=== PATIENT | female | born 1990 | race Caucasian/White ===

== ENCOUNTER 2016-09-19 09:12 | Inpatient (IN) | payer BC ==
[~2016-09-19] VITALS: Ht 154.9 cm; Wt 56.7 kg
[~2016-09-19 09:12] MED LIST: COLACE100 MG PO; IBUPROFEN400 MG PO; LITHIUM PO
[2016-09-19 10:46] LABS: BASOPHIL % 0.4 % (0-2); CALCIUM 8.7 mg/dL (8.5-10.1); CARBON DIOXIDE 28.6 mmol/L (21-32); CHLORIDE SERUM 105 mmol/L (98-107); CREATININE SERUM 0.8 mg/dL (0.6-1.0); GFR1 > 60 mL/min; GLUCOSE SERUM 98 mg/dL (74-106); PLATELET COUNT 246 x10^3mcL (130-400); POTASSIUM SERUM 3.6 mmol/L (3.5-5.1); SODIUM SERUM 140 mmol/L (136-145)
[2016-09-19 10:50] LABS: ALBUMIN 3.6 g/dL (3.4-5.0); ALKALINE PHOSPHATASE 69 U/L (46-116); ALT/SGPT 16 U/L (14-59); AMYLASE 67 U/L (25-115); AST/SGOT 13 U/L (15-37); BILIRUBIN TOTAL 0.4 mg/dL (0.20-1.00); LIPASE 109 IU/L (73-393); TOTAL PROTEIN, SERUM 7.1 g/dL (6.4-8.2)
[2016-09-19 11:20] LABS: FREE T4 0.97 ng/dL (0.76-1.46); FREE THYROXINE INDEX 2.7 ug/dL (1.4-4.5); T4(THYROXINE) 8.1 ug/dL (4.7-13.3)
[2016-09-19 11:21] LABS: T3 TOTAL 1.05 ng/mL
[2016-09-19 11:44] LABS: MAGNESIUM 1.9 mg/dL (1.8-2.4)
[2016-09-19 12:24] VITALS: BP 101/66
[2016-09-19 13:50] VITALS: BP 101/66
[2016-09-19 17:47] VITALS: BP 106/61
[2016-09-19 20:06] LABS: UA SPECIFIC GRAVITY >=1.030 (1.005-1.035); microscopic required? YES; urine erythrocyte NEGATIVE (NEGATIVE)
[2016-09-19 22:20] VITALS: BP 119/76
[2016-09-20 05:21] VITALS: BP 101/67
[2016-09-20 06:08] LABS: PLATELET COUNT 202 x10^3mcL (130-400); RED CELL DISTRIBUTION WIDTH 13.5 % (11.5-14.5)
[2016-09-20 06:18] LABS: CALCIUM 8.4 mg/dL (8.5-10.1); CARBON DIOXIDE 24.9 mmol/L (21-32); CHLORIDE SERUM 104 mmol/L (98-107); CREATININE SERUM 0.7 mg/dL (0.6-1.0); GFR1 > 60 mL/min; GLUCOSE SERUM 114 mg/dL (74-106); MAGNESIUM 1.5 mg/dL (1.8-2.4); PHOSPHOROUS 4.4 mg/dL (2.5-4.9); POTASSIUM SERUM 4.3 mmol/L (3.5-5.1); SODIUM SERUM 137 mmol/L (136-145)
[2016-09-20 06:43] LABS: BASOPHIL % 0 % (0-2)
[2016-09-20 10:24] VITALS: BP 75/52
[2016-09-20 14:25] VITALS: BP 99/57
[2016-09-20 17:54] VITALS: BP 98/44
[2016-09-20 21:42] VITALS: BP 110/69
[2016-09-21 05:30] VITALS: BP 96/49
[2016-09-21 07:08] LABS: CALCIUM 7.7 mg/dL (8.5-10.1); CHLORIDE SERUM 106 mmol/L (98-107); CREATININE SERUM 0.6 mg/dL (0.6-1.0); GFR1 > 60 mL/min; GLUCOSE SERUM 100 mg/dL (74-106); MAGNESIUM 1.9 mg/dL (1.8-2.4); PHOSPHOROUS 2.3 mg/dL (2.5-4.9); POTASSIUM SERUM 3.3 mmol/L (3.5-5.1); SODIUM SERUM 139 mmol/L (136-145)
[2016-09-21 07:32] LABS: BASOPHIL % 0.4 % (0-2); PLATELET COUNT 210 x10^3mcL (130-400); RED CELL DISTRIBUTION WIDTH 14.1 % (11.5-14.5)
[2016-09-21 10:21] VITALS: BP 106/64
[2016-09-21] MEDS ORDERED: SIMETHICONE80 MG CH (13:55)
[2016-09-21] MEDS ORDERED: PRI20 PO (13:56)
[2016-09-21] MEDS ORDERED: ACETAMINOPHEN-H1 TA1 PO (14:22)
[2016-09-21] MEDS ORDERED: COL100 PO (14:23)
[2016-09-21 14:32] VITALS: BP 106/64
== END 2016-09-21 16:00 | disposition home or self-care (01) | DRG 743 ==
LOC: ED 09:12 → MU 10:20 → DU 10:20 → MU 09-20 09:46
PROVIDERS: Emergency Medicine; Family Medicine; Obstetrics & Gynecology; ADMIT Family Medicine
PROC: 0UB00ZZ Excision of Right Ovary, Open Approach (ICD-10-PCS; principal; 2016-09-19 20:00)
DX: N83.201 Unspecified ovarian cyst, right side (principal); R19.03 Right lower quadrant abdominal swelling, mass and lump; Z68.23 Body mass index [BMI] 23.0-23.9, adult; Z80.0 Family history of malignant neoplasm of digestive organs; E83.42 Hypomagnesemia; E87.6 Hypokalemia; E83.39 Other disorders of phosphorus metabolism; D64.9 Anemia, unspecified
CPT/HCPCS: 83880; 84439; 94150; J0690; J1170; J2060; J2270; J2405; J3010; J3475; J3490; J7030; Q0092

== ENCOUNTER 2017-02-11 15:50 | Inpatient (IN) | payer BC ==
[~2017-02-11] VITALS: Ht 157.5 cm; Wt 65.0 kg
[~2017-02-11 15:50] MED LIST changes: +ACETAMINOPHEN-H1 TA1 PO; +COL100 PO; +PRI20 PO; +SIMETHICONE80 MG CH
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
--- NOTE | 2017-02-11 16:54 | NUR ---
3 ATTEMPTS AT STRAIGHT CATH, UNSUCCESSFUL, UNABLE TO VISUALIZE PT URETHRA
--- NOTE | 2017-02-11 17:09 | NUR ---
PTS FATHER AT BEDSIDE.
--- NOTE | 2017-02-11 17:24 | NUR ---
DR FLORES AT BEDSIDE FOR MSE
[2017-02-11 17:35] LABS: UA SPECIFIC GRAVITY 1.025 (1.005-1.035); microscopic required? YES; urine erythrocyte NEGATIVE (NEGATIVE)
[2017-02-11 17:44] LABS: AMPHETAMINE QUAL UR NONE DETECTED (NEG <=1000)
[2017-02-11 18:08] LABS: BASOPHIL % 0.4 % (0-2); PLATELET COUNT 204 x10^3mcL (130-400)
[2017-02-11 18:11] LABS: CALCIUM 7.5 mg/dL (8.5-10.1); CARBON DIOXIDE 27.8 mmol/L (21-32); CHLORIDE SERUM 108 mmol/L (98-107); CREATININE SERUM 0.6 mg/dL (0.6-1.0); GFR1 > 60 mL/min; GLUCOSE SERUM 97 mg/dL (74-106); SODIUM SERUM 141 mmol/L (136-145)
[2017-02-11 18:12] LABS: RED CELL DISTRIBUTION WIDTH 14.9 % (11.5-14.5)
[2017-02-11 18:24] LABS: ALKALINE PHOSPHATASE 78 U/L (46-116); ALT/SGPT 18 U/L (14-59); AST/SGOT 14 U/L (15-37); BILIRUBIN TOTAL 0.2 mg/dL (0.20-1.00); FREE T4 0.85 ng/dL (0.76-1.46); TOTAL PROTEIN, SERUM 6.3 g/dL (6.4-8.2)
[2017-02-11 18:32] LABS: ALBUMIN 3.1 g/dL (3.4-5.0)
--- NOTE | 2017-02-11 18:50 | NUR ---
PT TAKEN TO CT VIA RNELSY.
--- NOTE | 2017-02-11 19:10 | NUR ---
TOOK REPORT FROM MORIAH PINEDA, WILL ASSUME CARE OF PATIENT.
--- NOTE | 2017-02-11 19:11 | NUR ---
PT IS SLEEPING. VITAL SIGNS STABLE. RESPIRATIONS EVEN AND UNLABORED. NO ACUTE DISTRESS NOTED.
--- NOTE | 2017-02-11 20:11 | NUR ---
PT APPEARS TO BE RESTING WITH HER EYES CLOSED. VITAL SIGNS STABLE. RESPIRATIONS EVEN AND UNLABORED. NO ACUTE DISTRESS NOTED.
--- NOTE | 2017-02-11 20:51 | NUR ---
ASSISTED WITH LP. WALKED SPECIMEN TO LAB. PT RESPIRATIONS EVEN AND UNLABORED. VITAL SIGNS STABLE. NO ACUTE DISTRESS NOTED
--- NOTE | 2017-02-11 21:43 | NUR ---
PT SLEEPING. PT IS HYPOTENSIVE 89/51 ALL OTHER VITAL STABLE. RESPIRATIONS EVEN AND UNLABORED. NO ACUTE DISTRESS NOTED
--- NOTE | 2017-02-11 21:44 | NUR ---
RADIOLOGY AT BEDSIDE FOR X-RAY
--- NOTE | 2017-02-11 22:02 | NUR ---
GAVE REPORT TO ROSEMARIE ON MED/TELE.
[2017-02-11 22:03] LABS: TOTAL PROTEIN CSF 23.4 mg/dL (15-45)
[2017-02-11 22:09] LABS: PHOSPHOROUS 3.1 mg/dL (2.5-4.9)
[2017-02-11 22:10] LABS: CHOLESTEROL/HDL RATIO 2.1
[2017-02-11 22:17] LABS: T3 TOTAL 0.92 ng/mL
[2017-02-11 22:18] LABS: APPEARANCE CSF CLEAR; COLOR CSF COLORLESS; RBC CSF 0 /cumm (0); VOLUME CSF 7.5 mL; WBC CSF 0 /cumm (0-5)
[2017-02-11 22:19] LABS: APPEARANCE CSF CLEAR; RBC CSF 0 /cumm (0); VOLUME CSF 7.5 mL; WBC CSF 0 /cumm (0-5)
[2017-02-11 22:20] LABS: FREE T4 0.83 ng/dL (0.76-1.46); FREE THYROXINE INDEX 2.3 ug/dL (1.4-4.5); T4(THYROXINE) 6.9 ug/dL (4.7-13.3)
[2017-02-11 22:28] VITALS: BP 104/70
--- NOTE | 2017-02-11 22:36 | NUR ---
RECEIVED PATIENT FROM ED VIA [facility], PATIENT ALERT AND ORIENTED, TELE # 7 ST, IV ACCESS TO LAC WNL, NO C/O PAIN AT THIS TIME, ORIENTED PATIENT TO ROOM AND SURROUNDINGS, BED IN LOW POSITION, BED RAILS UP X 2, CALL LIGHT WITHIN REACH, WILL ENDORSE CARE TO PRIMARY NURSE ROSEMARIE PINEDA
--- NOTE | 2017-02-11 22:43 | NUR ---
REC'D REPORT, WILL CONTINUE CARE.
--- NOTE | 2017-02-12 01:12 | NUR ---
ROUNDS MADE, PT IS SLEEPING WITH EYES CLOSED. NO DISTRESS NOTED. WILL CONT TO MONITOR.
[2017-02-12 05:31] VITALS: BP 96/50
--- NOTE | 2017-02-12 06:11 | NUR ---
PT SLEPT THROUGHOUT THE SHIFT. DENIES PAIN. NO ACUTE RESP DISTRESS NOTED. ALL NEEDS MET AND ATTENDED TO. NO SIGNIFICANT CHANGES. IV ACCESS INTACT AND PATENT INFUSING WELL. WILL ENDORSE ALL CARE TO ONCOMING NURSE.
[2017-02-12 06:33] LABS: BASOPHIL % 0.4 % (0-2); PLATELET COUNT 189 x10^3mcL (130-400)
[2017-02-12 06:40] LABS: RED CELL DISTRIBUTION WIDTH 14.9 % (11.5-14.5)
[2017-02-12 06:44] LABS: CALCIUM 7.9 mg/dL (8.5-10.1); CARBON DIOXIDE 25.4 mmol/L (21-32); CHLORIDE SERUM 110 mmol/L (98-107); CREATININE SERUM 0.5 mg/dL (0.6-1.0); GFR1 > 60 mL/min; GLUCOSE SERUM 90 mg/dL (74-106); POTASSIUM SERUM 3.6 mmol/L (3.5-5.1); SODIUM SERUM 142 mmol/L (136-145)
--- NOTE | 2017-02-12 07:32 | NUR ---
PT IS RESTING COMFORTABLLY. PT BREATHING ON RA, EVEN, UNLABORED. NO PAIN AND DISTRESSED NOTED. IV SITE PATENT, INTACT. IVF INFUSING WELL.
[2017-02-12 08:55] VITALS: BP 96/58
--- NOTE | 2017-02-12 10:44 | NUR ---
DC WYMAN PER ORDER. PT TOLERATE WELL.
--- NOTE | 2017-02-12 11:30 | NUR ---
PT VOIDED WITHOUT PROBLEM AFTER WYMAN REMOVED.
[2017-02-12 12:58] VITALS: BP 91/61
--- NOTE | 2017-02-12 17:24 | NUR ---
PT IS AWAKE, ALERT, ORIENTED X 3. PT NO COMPLAIN OF DIZZINESS. PT NO COMPLAIN OF BURNING SENESATION WHILE URINATING, AFTER WYMAN REMOVED. PT BREATHING ON RA, EVEN, UNLABORED. IV SITE PATENT, INTACT. IVF INFUSING WELL.
--- NOTE | 2017-02-12 17:59 | NUR ---
PT INSISTED TO LEAVE. DR. VO TALKED PT. PT DECIDED TO SIGN AMA. PT'S DAD COME TO DRIER AND GRINDER TENDER PT. PT LEFT WITHOUT DISTRESS NOTED.
== END 2017-02-12 17:55 | disposition left against medical advice (07) | DRG 871 ==
LOC: ED 15:50 → DU 21:25
PROVIDERS: Emergency Medicine; ADMIT Family Medicine Sports Medicine
DX: A41.9 Sepsis, unspecified organism (principal); N17.0 Acute kidney failure with tubular necrosis; G92 Toxic encephalopathy; N39.0 Urinary tract infection, site not specified; E44.0 Moderate protein-calorie malnutrition; R65.20 Severe sepsis without septic shock; E83.51 Hypocalcemia; Z80.8 Family history of malignant neoplasm of other organs or systems; D64.9 Anemia, unspecified; Z68.26 Body mass index [BMI] 26.0-26.9, adult
CPT/HCPCS: 83880; 84439; G0480; J0133; J0153; J0696; J2001; J2060; J3490; J7030

== ENCOUNTER 2018-06-14 00:14 | Emergency (ER) | payer BC ==
[~2018-06-14] VITALS: Ht 157.5 cm; Wt 59.0 kg
[2018-06-14 00:30] VITALS: Ht 157.5 cm; Wt 59.0 kg
[2018-06-14 01:04] LABS: BASOPHIL % 0.3 % (0-2); PLATELET COUNT 222 x10^3mcL (130-400)
[2018-06-14 01:15] LABS: CALCIUM 9.1 mg/dL (8.5-10.1); CARBON DIOXIDE 16.2 mmol/L (21-32); CHLORIDE SERUM 98 mmol/L (98-107); CREATININE SERUM 0.7 mg/dL (0.6-1.0); GFR1 > 60 mL/min; GLUCOSE SERUM 117 mg/dL (74-106); POTASSIUM SERUM 4.3 mmol/L (3.5-5.1); SODIUM SERUM 134 mmol/L (136-145)
[2018-06-14 01:20] LABS: ALBUMIN 4.1 g/dL (3.4-5.0); ALKALINE PHOSPHATASE 66 U/L (46-116); ALT/SGPT 21 U/L (14-59); AST/SGOT 17 U/L (15-37); BILIRUBIN TOTAL 0.88 mg/dL (0.20-1.00); LIPASE 66 IU/L (73-393)
[2018-06-14 03:32] VITALS: BP 123/80
== END 2018-06-14 03:32 | disposition home or self-care (01) ==
LOC: ED 00:14
PROVIDERS: Emergency Medicine
DX: K29.70 Gastritis, unspecified, without bleeding (principal); R11.10 Vomiting, unspecified; F41.9 Anxiety disorder, unspecified; F32.9 Major depressive disorder, single episode, unspecified
CPT/HCPCS: J2405; J3490; J7030

== ENCOUNTER 2018-09-09 20:07 | Emergency (ER) | payer BC ==
[~2018-09-09] VITALS: Ht 157.5 cm; Wt 59.0 kg
[2018-09-09 20:10] VITALS: Ht 157.5 cm; Wt 59.0 kg
[2018-09-09 20:42] LABS: BASOPHIL % 0.6 % (0-2); PLATELET COUNT 201 x10^3mcL (130-400); RED CELL DISTRIBUTION WIDTH 14.2 % (11.5-14.5)
[2018-09-09 20:50] LABS: CALCIUM 9.2 mg/dL (8.5-10.1); CARBON DIOXIDE 21.5 mmol/L (21-32); CHLORIDE SERUM 104 mmol/L (98-107); CREATININE SERUM 0.8 mg/dL (0.6-1.0); GFR1 > 60 mL/min; GLUCOSE SERUM 110 mg/dL (74-106); POTASSIUM SERUM 3.2 mmol/L (3.5-5.1); SODIUM SERUM 142 mmol/L (136-145)
[2018-09-09 20:56] LABS: ALBUMIN 3.9 g/dL (3.4-5.0); ALKALINE PHOSPHATASE 74 U/L (46-116); ALT/SGPT 22 U/L (14-59); AST/SGOT 15 U/L (15-37); TOTAL PROTEIN, SERUM 7.7 g/dL (6.4-8.2)
[2018-09-09 22:45] LABS: UA SPECIFIC GRAVITY 1.025 (1.005-1.035); microscopic required? YES; urine erythrocyte 1+ (NEGATIVE)
[2018-09-09 22:56] LABS: AMPHETAMINE QUAL UR NONE DETECTED (See below)
[2018-09-10 08:51] VITALS: BP 105/63
== END 2018-09-10 05:51 | disposition short-term general hospital (02) ==
LOC: ED 20:07
PROVIDERS: Specialist
DX: T65.892A Toxic effect of other specified substances, intentional self-harm, initial encounter (principal); E87.6 Hypokalemia; F41.9 Anxiety disorder, unspecified; F32.9 Major depressive disorder, single episode, unspecified; S60.812A Abrasion of left wrist, initial encounter; X78.1XXA Intentional self-harm by knife, initial encounter; Y93.89 Activity, other specified; Y92.89 Other specified places as the place of occurrence of the external cause; Y99.9 Unspecified external cause status
CPT/HCPCS: G0480; J2405; J7030

== ENCOUNTER 2018-10-28 21:09 | Emergency (ER) | payer OTHER ==
[~2018-10-28] VITALS: Ht 157.5 cm; Wt 56.7 kg
[2018-10-28 21:13] VITALS: Ht 157.5 cm; Wt 56.7 kg
[2018-10-28 21:35] VITALS: BP 136/88
== END 2018-10-28 21:35 | disposition other institution (70) ==
LOC: ED 21:09
DX: Z02.89 Encounter for other administrative examinations (principal)

== ENCOUNTER 2019-03-11 19:50 | Emergency (ER) | payer BC ==
[~2019-03-11] VITALS: Ht 154.9 cm; Wt 59.0 kg
[2019-03-11 19:59] VITALS: Ht 154.9 cm; Wt 59.0 kg
[2019-03-11 21:11] LABS: BASOPHIL % 0.9 % (0-2); PLATELET COUNT 260 x10^3mcL (130-400); RED CELL DISTRIBUTION WIDTH 15.7 % (11.5-14.5)
[2019-03-11 21:15] LABS: CALCIUM 9.1 mg/dL (8.5-10.1); CARBON DIOXIDE 28.6 mmol/L (21-32); CHLORIDE SERUM 105 mmol/L (98-107); CREATININE SERUM 0.7 mg/dL (0.6-1.0); GFR1 > 60 mL/min; GLUCOSE SERUM 65 mg/dL (74-106); POTASSIUM SERUM 3.8 mmol/L (3.5-5.1); SODIUM SERUM 141 mmol/L (136-145)
[2019-03-11 22:10] LABS: AMPHETAMINE QUAL UR NONE DETECTED (See below)
[2019-03-12 08:40] VITALS: BP 126/81
== END 2019-03-12 08:40 | disposition short-term general hospital (02) ==
LOC: ED 19:50
PROVIDERS: Emergency Medicine
DX: R45.851 Suicidal ideations (principal)
CPT/HCPCS: 36415; 90715; G0480